=== PATIENT | female | born 1955 | race Caucasian/White ===

== ENCOUNTER 2024-04-22 06:38 | Outpatient (CLI) | payer MEDICARE, BC, SELFPAY | END 2024-04-22 06:39 | disposition home or self-care (01) | LOC: NFLDREF 06:39 | PROVIDERS: PCP Family Medicine; Visit Provider Family Medicine | DX: N30.00 Acute cystitis without hematuria (principal); B96.20 Unspecified Escherichia coli [E. coli] as the cause of diseases classified elsewhere | CPT/HCPCS: 87086; 87186 ==

== ENCOUNTER 2024-05-06 07:55 | Outpatient (CLI) | payer MEDICARE, BC, SELFPAY | END 2024-05-06 07:56 | disposition home or self-care (01) | LOC: NFLDREF 05-10 22:55 | PROVIDERS: PCP Family Medicine; Referring Provider Family Medicine; Visit Provider Family Medicine | DX: E78.5 Hyperlipidemia, unspecified (principal); R30.0 Dysuria | CPT/HCPCS: 80053; 80061 ==

== ENCOUNTER 2024-11-23 11:19 | Outpatient (CLI) | payer MEDICARE, BC, SELFPAY ==
--- NOTE | 2024-11-23 11:30 | CRLHL7_ITS ---
For Patients: As a result of the Century Cures Act, medical imaging exams and procedure reports are released immediately into your electronic medical record. You may view this report before your referring provider. If you have questions, please contact your health care provider. BILATERAL SCREENING MAMMOGRAM WITH COMPUTER-AIDED DETECTION AND TOMOSYNTHESIS TECHNIQUE: CC and MLO views were obtained. These mammographic images have been obtained using full-field digital technique. These mammographic images were interpreted with the benefit of computer-aided detection. Breast Tomosynthesis was used in this interpretation. COMPARISON FILM: 02/02/19, 07/30/16. FINDINGS: The breasts are heterogeneously dense, which may obscure small masses. IMPRESSION: There is no radiographic evidence for malignancy. ASSESSMENT: BI-RADS Category 1: Negative RECOMMENDATION: Routine screening mammogram in 1 year. A lay language report of this examination will be provided to the patient. Syed Carter M.D. Diagnostic Radiologist [email or web address] SP/Dictated by: Syed Carter MD @ 11/24/2024 9:17:00 AM (Electronically Signed)
== END 2024-11-23 11:20 | disposition home or self-care (01) ==
LOC: MAMMO 11:20
PROVIDERS: PCP Family Medicine; Visit Provider Family Medicine
DX: Z12.31 Encounter for screening mammogram for malignant neoplasm of breast (principal); R92.333 Mammographic heterogeneous density, bilateral breasts
CPT/HCPCS: 77063; 77067

== ENCOUNTER 2024-12-06 16:00 | Outpatient (RCR) | payer MEDICARE, BC, SELFPAY ==
--- NOTE | 2024-08-30 10:53 | PT.OPEX ---
PT [place] Outpatient Eval PT [facility] Outpatient Eval Start: 08/16/24 14:52 Freq: Status: Active Protocol: Document 08/30/24 07:13 MLS (Rec: 08/30/24 10:51 MLS [email or web address]) E-signed By Gris Guzman DPT Physical Therapy Outpatient Evaluation Insurance Information Recert Due Date 11/27/24 Insurance Name Medicare B,Blue Cross/Blue Shield Medical Diagnosis M39.3 stress incontinence Treating Diagnosis Stress incontinence LBP - right sided Referring MD Roger Long MD Subjective Preferred Name Tiara Anders Patient is a 69 year old female who presents to physical therapy with signs and symptoms consistent with stress incontinence and low back pain. She states that when she was 40, she had a herniated disc. She states that she lost strength in her right leg and sciatica. She states that she did go to the [facility] in [place] for PT. She reports that she did her exercise until about 2016. She states that she did her stretches until she started getting vertigo. She states that she has not been doing her low back stretches but does other exercises. She states that she is very active . She states that she has a big house and yard and two dogs, so her exercise is taking care of everything. She reports that she has the strength to lift a case of food. No complaints of numbness or tingling into her legs now. She states that her back discomfort now is pretty much constant. She states that the intensity comes and goes, and it is more like a dull sensation in her low back . She states that she takes Advil for pain. She states that she sleeps with a body pillow. She states that she stress incontinence ahs been going on for about ten years. She states that she had a hysterectomy at 50. She reports that she was on the patch but it was not working well. She states that she has been on estrogen and they dropped it to 10 mg due to insurance reasons. She states that after they dropped the estrogen, her incontinence seems to get worse. She states that she thinks something may be irritating her bladder, but is unsure what. She states that she really does not like drinking water, and she gets lots of burps. She did have a severe bladder infection in March, [place]. She states that by the time she got in, she had a lot of urgency which has improved now . Urinary- Leakage (day/night):every other day/every third day - may just have some dampness, she can wear one brand bc of skin sensitivity, she has some panties that absorb but they are bulky Freq of leakage: once on one of those days, with an event, with a sneeze or cough, inconsistent with time of day Protection worn: pad during day, not at night Severity of leakage (amount): varies Activity that causes leakage ( laughing, coughing, sneezing, carpio in door, running water etc): coughing, sneezing, carpio in door a few times Delay of urination: no Urinary urgency (any incontinence): one time Strain to start/stop urine stream: no, does try to double void, will sit for a minute to get more out Hydration/fluid intake: morning, as much decaf as she can drink (5 cups of coffee), 1 v8 juice at lunch, after nap more coffee, will sometimes have a little water in the afternoon, sometimes wine with dinner, water with meds in evening Daytime urination (how often): 8 Nocturia: 3 (after dinner) Dysuria (pain w urination): no Post-void dribble: no Pressure/heaviness: no Triggers: not that she is aware of Observation (color, odor, burning, blood, weak stream): typically dark yellow Bowel- Frequency:1 or less [place] chart: 1-4, worse with holidays, took psyllium and overcorrected Constipation/Diarrhea: constipation Observation (mucus. blood): no Do you feel bowels fully evacuate with BM: no, worse with constipation Fecal leakage: no Fecal urgency: sometimes Protection used: no Straining with BM: yes Pain with BM: occasionally, not frequently Do you use pressure with hands to assist with BM: sometimes Flatus incontinence: rarely Abdominal/rectal pain or symptoms: occasionally Do foods increase or decrease symptoms: whole grains help Do you take bowel supplements/ laxatives: not regularly Fiber intake: not enough Diet/food intolerances: vegetarian at heart, but flexitarian now, artificial sugars intolerance Sexual- Are you sexually active: has ED, so not currently, did buy vibrator from [employer] but too loud, last time was this summer for sex What does sex activity look like for you (penetration, dryness etc): used a lubricant Pain with sex (location, penetration, orgasm, after): no, sex has been better since hysterectomy Leakage with intercourse: no Marinoff scale (rate pain):0 Menstrual History- Date of last period: 05/09/2005 , then had full hysterectomy Menopause age: 50 - Number of pregnancies: 3 Number of deliveries:3 Vaginal or : vaginal Length of labor/pushing: episiotomy with first, second very fast and tore, third fast with tear Forceps or Vacuum: no Tearing or episiotomy: yes Other complications: abrupted placenta with third Other- Pain with gynecological exam: no Any chronic yeast infections: no Chronic UTIs: no STIs: Prefer not to answer Vaginal dryness: yes, not horrible Meds taken for bladder or diuretics: Chlorthalidone PMHx-hypertension and PVC's ( 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 Precautions Weight Bearing Status Full Weight Bearing Therapy Limitations/Systems Review Not Limited Objective Other/Pertinent Objective SLS: no increase in pain Lumbar Posture: decreased lordosis Pelvic Posture: normal Sacral Posture: normal Hip PROM: WNL LUMBAR ROM: WNL, min dec, mod dec, sev dec Flexion: WNL Extension: min dec Right Sidebend: WNL Left Sidebend: min dec Right Rotation: WNL Left Rotation: min dec LE MMT Hip flexion: R 4+/5 L 5/5 Hip Extension: R 4+/5 L 4+/5 Hip abduction: R 4+/5 L 4+/5 knee extension: R 5/5 L 5/5 Knee Flexion: R 5/5 L 5/5 Other tests: Breathing: chest/neck breathing Myofascial palpation: Tenderness to right QL SPECIAL TESTS Straight leg raise: positive for discomfort on right Crossed straight leg raise: negative Slump test: negative Quadrant test: negative HIP (R/L): KENDRICK: positive on right FADIR: negative Log roll Test: negative Posterior impingement Test: negative Hong compression Test(IT-band ): negative TX: Access Code: [email or web address] URL: [email or web address] Date: 08/30/2024 Prepared by: Gris Guzman Exercises - Supine Diaphragmatic Breathing - 1 x daily - 7 x weekly - 3 sets - 10 reps - Supine Lower Trunk Rotation - 1 x daily - 7 x weekly - 3 sets - 10 reps - Supine Figure 4 Piriformis Stretch - 1 x daily - 7 x weekly - 3 sets - 10 reps - Child's Pose Stretch - 1 x daily - 7 x weekly - 3 sets - 10 reps - Cat Cow - 1 x daily - 7 x weekly - 3 sets - 10 reps Functional Test Performed & Score Pelvic Floor Questionnaire Bladder Function Bowel Function Prolapse and Sexual Function N /A Assessment Assessment/Impression Pt is a 69 year old female who presents with concerns of stress incontinence and low back pain. Internal exam at next appointment. Patient also has notable objective findings including limited ROM , tenderness to palpation, and decreased strength which are also likely contributing to the problem. Patient is a good candidate for skilled therapy to target deficits described above. Skilled PT intervention is necessary for use of therapeutic exercise manual therapy, neuromuscular re- education, gait training, and therapeutic activity. Functional impairments include difficulty with: standing, walking, exercising and ADLs. See appropriate sections of PT eval for complete list of goals and POC. D/C plan and criteria is for pt to achieve the goals as listed below or until max rehab potential is met. Pt was agreeable with plan of care and goals established. Primary Functional Limitations standing walking exercising ADLs Plan of Care Rehabilitation Potential Good Physical Therapy Goals STG (within 4-6 weeks) 1) Pt will demonstrate proper coordination of motor recruitment patterns for PF then TA activation during isometric activation while maintaining diaphragmatic breathing pattern 2)Pt will recall at least 4 strategies to improve pressure management in order to reduce instances of incontinence outside PT sessions 3) Pt will report reduced urinary leakage episodes no more than 1-2 times per day for improved health of vaginal tissues 4) Pt will be able to perform ADLs with reports of <2/10 low back pain. LTG (within 10-12 weeks) 1) Pt will demonstrate proper coordination of motor recruitment patterns for PF then TA activation during dynamic UE/LE movements in all postures while maintaining diaphragmatic breathing pattern 2)Pt will demonstrate ability to complete at least 10 quick contractions of PFM with full relaxation between reps in order to reduce incontinence with increases in IAP 3) Pt will report reduced urinary leakage episodes no more than 1-2 times per week for improved health of vaginal tissues 4) Pt will report absent urinary leakage with cough, sneeze, jump. Coordination/Communication With Referral Source Treatment Plan/Direct Interventions Joint Mobilization,Manual Therapy,Neuromuscular Re-ed, Therapeutic Activities, Therapeutic Exercises Patient Will Be Discharged From Therapy Independently Progressing Evaluation Billing Untimed Code Treatment Minutes 60 Complexity Low Certification Information Provider Signature Required Yes Provider Signature Shows Agreement With POC & Medical Necessity Physician NPI Number Write NPI# Here Physician Comment/Change : Physician Signature & Date Requested Please Sign/Date Here
--- NOTE | 2024-12-06 16:38 | PT.OPDNX ---
PT [place] Outpatient Daily Note PT [facility] Outpatient Daily Note Start: 08/16/24 14:52 Freq: Status: Active Protocol: Document 12/06/24 10:21 MLS (Rec: 12/06/24 16:37 MLS [email or web address]) E-signed By Gris Guzman DPT PT OP Daily Progress Note Visit Information Note Type Daily Note Visit Number 4 Insurance Information Recert Due Date 11/27/24 Insurance Name Medicare B,Blue Cross/Blue Shield Medical Diagnosis M39.3 stress incontinence Treating Diagnosis Stress incontinence LBP - right sided Referring MD Roger Long MD Subjective Preferred Name Tiara Subjective Patient is a 69 year old female who presents to physical therapy with signs and symptoms consistent with stress incontinence and low back pain. She states that she is feeling like she is turning 70. She states that she wants to hold her body at a distance. She states that she was having a lot of back pain and that it is better now . She has still been struggling with vertigo. She states that it may be related to the blood pressure medication. She states that she can't figure out the cause of it. She is trying to get her MRI from [facility] . She states that she is workingo n her pelvic floor contractions and sidelying is better. She states that she has been having some days without leakage and some with. She has an appointment with her breast surgeon on the and is going to discuss vaginal estrogen. From initial: She states that when she was 40, she had a herniated disc. She states that she lost strength in her right leg and sciatica. She states that she did go to the [facility] in [place] for PT. She reports that she did her exercise until about 2016. She states that she did her stretches until she started getting vertigo. She states that she has not been doing her low back stretches but does other exercises. She states that she is very active . She states that she has a big house and yard and two dogs, so her exercise is taking care of everything. She reports that she has the strength to lift a case of food. No complaints of numbness or tingling into her legs now. She states that her back discomfort now is pretty much constant. She states that the intensity comes and goes, and it is more like a dull sensation in her low back . She states that she takes Advil for pain. She states that she sleeps with a body pillow. She states that she stress incontinence ahs been going on for about ten years. She states that she had a hysterectomy at 50. She reports that she was on the patch but it was not working well. She states that she has been on estrogen and they dropped it to 10 mg due to insurance reasons. She states that after they dropped the estrogen, her incontinence seems to get worse. She states that she thinks something may be irritating her bladder, but is unsure what. She states that she really does not like drinking water, and she gets lots of burps. She did have a severe bladder infection in March, [place]. She states that by the time she got in, she had a lot of urgency which has improved now . Urinary- Leakage (day/night):every other day/every third day - may just have some dampness, she can wear one brand bc of skin sensitivity, she has some panties that absorb but they are bulky Freq of leakage: once on one of those days, with an event, with a sneeze or cough, inconsistent with time of day Protection worn: pad during day, not at night Severity of leakage (amount): varies Activity that causes leakage ( laughing, coughing, sneezing, carpio in door, running water etc): coughing, sneezing, carpio in door a few times Delay of urination: no Urinary urgency (any incontinence): one time Strain to start/stop urine stream: no, does try to double void, will sit for a minute to get more out Hydration/fluid intake: morning, as much decaf as she can drink (5 cups of coffee), 1 v8 juice at lunch, after nap more coffee, will sometimes have a little water in the afternoon, sometimes wine with dinner, water with meds in evening Daytime urination (how often): 8 Nocturia: 3 (after dinner) Dysuria (pain w urination): no Post-void dribble: no Pressure/heaviness: no Triggers: not that she is aware of Observation (color, odor, burning, blood, weak stream): typically dark yellow Bowel- Frequency:1 or less [place] chart: 1-4, worse with holidays, took psyllium and overcorrected Constipation/Diarrhea: constipation Observation (mucus. blood): no Do you feel bowels fully evacuate with BM: no, worse with constipation Fecal leakage: no Fecal urgency: sometimes Protection used: no Straining with BM: yes Pain with BM: occasionally, not frequently Do you use pressure with hands to assist with BM: sometimes Flatus incontinence: rarely Abdominal/rectal pain or symptoms: occasionally Do foods increase or decrease symptoms: whole grains help Do you take bowel supplements/ laxatives: not regularly Fiber intake: not enough Diet/food intolerances: vegetarian at heart, but flexitarian now, artificial sugars intolerance Sexual- Are you sexually active: has ED, so not currently, did buy vibrator from [employer] but too loud, last time was this summer for sex What does sex activity look like for you (penetration, dryness etc): used a lubricant Pain with sex (location, penetration, orgasm, after): no, sex has been better since hysterectomy Leakage with intercourse: no Marinoff scale (rate pain):0 Menstrual History- Date of last period: 05/09/2005 , then had full hysterectomy Menopause age: 50 - Number of pregnancies: 3 Number of deliveries:3 Vaginal or : vaginal Length of labor/pushing: episiotomy with first, second very fast and tore, third fast with tear Forceps or Vacuum: no Tearing or episiotomy: yes Other complications: abrupted placenta with third Other- Pain with gynecological exam: no Any chronic yeast infections: no Chronic UTIs: no STIs: Prefer not to answer Vaginal dryness: yes, not horrible Meds taken for bladder or diuretics: Chlorthalidone PMHx-hypertension and PVC's ( 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 Abuse- prefer not to answer Current exercise-walk the dogs , working in home Orthopedic issues-herniated L4 -L5 in 1994 Pain Comments Today: 2/10 on a 0-10 pain scale with 10 = extreme pain Precautions Weight Bearing Status Full Weight Bearing Objective Other/Pertinent Objective SLS: no increase in pain Lumbar Posture: decreased lordosis Pelvic Posture: normal Sacral Posture: normal Hip PROM: WNL LUMBAR ROM: WNL, min dec, mod dec, sev dec Flexion: WNL Extension: min dec Right Sidebend: WNL Left Sidebend: min dec Right Rotation: WNL Left Rotation: min dec LE MMT Hip flexion: R 4+/5 L 5/5 Hip Extension: R 4+/5 L 4+/5 Hip abduction: R 4+/5 L 4+/5 knee extension: R 5/5 L 5/5 Knee Flexion: R 5/5 L 5/5 Other tests: Breathing: chest/neck breathing Myofascial palpation: Tenderness to right QL SPECIAL TESTS Straight leg raise: positive for discomfort on right Crossed straight leg raise: negative Slump test: negative Quadrant test: negative HIP (R/L): KENDRICK: positive on right FADIR: negative Log roll Test: negative Posterior impingement Test: negative Hong compression Test(IT-band ): negative Functional Test Performed & Score Pelvic Floor Questionnaire Bladder Function Bowel Function Prolapse and Sexual Function N /A Patient Instructed in Risks/Benefits Yes Therapeutic Exercise Therapeutic Exercise: To Restore Reviewed and discussed home Functional Status program with modifications secondary to vertigo, attempt on floor or bed with pillows Add breath w movement, kegel w movement, pelvic tilt progression ball adduction squeezes, bridge w ball squeeze, lumbar stretching, pelvic tilts Access Code: [email or web address] URL: [email or web address] Date: 10/25/2024 Prepared by: Gris Guzman Exercises - Supine Lower Trunk Rotation - 1 x daily - 7 x weekly - 3 sets - 10 reps - Supine Figure 4 Piriformis Stretch - 1 x daily - 7 x weekly - 3 sets - 10 reps - Child's Pose Stretch - 1 x daily - 7 x weekly - 3 sets - 10 reps - Cat Cow - 1 x daily - 7 x weekly - 3 sets - 10 reps - Sidelying 360 Breathing - 1 x daily - 7 x weekly - 3 sets - 10 reps - Sidelying Thoracic Rotation with Open Book - 1 x daily - 7 x weekly - 3 sets - 10 reps - Supine Pelvic Floor Contraction - 1 x daily - 7 x weekly - 3 sets - 10 reps - 5 hold - less than 30 per day, 5 sec hold, contract before sneeze Therapeutic Activity Therapeutic Activity Minutes (minutes) 30 Therapeutic Activities Comments Reviewed and discussed diet, constipation hacks such as psyllium husks and frankie seeds, exchanging nightly drink for ice cream to decrease urgency in evenings, CBD/THC in place of advil, increasing kegel holds to 5-8 seconds still less than 30 per day, Pelvic External Exam: Sensation: intact to touch Gaping: none -Anterior wall: none -Posterior wall: none Tension/scar: none Skin integrity: dry, dark Perineum: concave Cough: reflexive contraction Lifting: nil Bulge: nil Prolapse: non Hemorrhoids: none Pelvic Internal Exam: Prolapse: no Tenderness/pain to palpation/ tone: Introidus: no tenderness Layer 1: Ischiocavernosus / bulbocavernosus / superficial transverse perineal - mild tenderness right side Layer 2: External urethral sphincter / deep transverse perineal / compressor urethra / sphincter urethrovaginalis - no tenderness Layer 3: Puborectalis / Pubococcygeus / illiococcygeus / coccygeus - mod tenderness left side Strength: (R/C/L) Power (MMT 0-no, 1-flicker, 2- weak, 3 -mod, 4-good/lift 5- strong): 4 Endurance: <5 sec Reps: 5 Fast Twitch: 5 Relaxation of PFM after quick contractions: normal/delayed Brink Score: squeeze pressure 3, muscle contraction duration >3, lift 2 (squeeze 0-none, 1- weak, 2- mod, 3-strong), duration <1, between 1-3, >3, lift- 1=none, 2- fingertips move ant, 3- length of finger moves ant, 4- whole finger moves ant Manual Therapy Techniques Manual Therapy Techniques DTM and myofascial release to bilateral piriformis, QL and multifidi Treatment Minutes Timed Code Treatment Minutes 30 Total Treatment Time 30 Billing Units Therapeutic Activity Units 2 Assessment/Impression Assessment/Impression Pt is a 69 year old female who presents with concerns of stress incontinence and low back pain. No internal work done today secondary to possible herpes outbreak. Increased kegels to 5-8 second holds, less than 30 per day. Discussed strategies to help with constipation including psyllium husk and frankie seeds. Discussed working in more water, although gag reflex has gotten worse due to recent traumatic dentist event. Difficulty with performing stretches on the floor due to vertigo. She notes that she has been under a lot of stress recently. Skilled PT intervention is necessary for use of therapeutic exercise manual therapy, neuromuscular re-education, gait training, and therapeutic activity. D/C plan and criteria is for pt to achieve the goals as listed below or until max rehab potential is met. Primary Functional Limitations standing walking exercising ADLs Plan of Care Physical Therapy Goals STG (within 4-6 weeks) 1) Pt will demonstrate proper coordination of motor recruitment patterns for PF then TA activation during isometric activation while maintaining diaphragmatic breathing pattern 2)Pt will recall at least 4 strategies to improve pressure management in order to reduce instances of incontinence outside PT sessions 3) Pt will report reduced urinary leakage episodes no more than 1-2 times per day for improved health of vaginal tissues 4) Pt will be able to perform ADLs with reports of <2/10 low back pain. LTG (within 10-12 weeks) 1) Pt will demonstrate proper coordination of motor recruitment patterns for PF then TA activation during dynamic UE/LE movements in all postures while maintaining diaphragmatic breathing pattern 2)Pt will demonstrate ability to complete at least 10 quick contractions of PFM with full relaxation between reps in order to reduce incontinence with increases in IAP 3) Pt will report reduced urinary leakage episodes no more than 1-2 times per week for improved health of vaginal tissues 4) Pt will report absent urinary leakage with cough, sneeze, jump. Daily Plan of Care Continue per POC Recertification Information Initial Certification Date 08/30/24 Recertification Start Date 12/06/24 Recertification Due Date 11/27/24 Reasons to Continue Skilled Therapy Penny has only had three appointments due to multiple cancellations for different reasons. She is progressing nicely with physical therapy for her stress incontinence. Will continue to focus on pelvic floor strengthening and core program. Rehabilitation Potential Good Continued Plan of Care and Interventions Ther exercise Ther activities manual therapy Provider Signature Shows Agreement With POC & Medical Necessity Physician Comment/Change Comment or Changes Physician NPI Number #
== END 2025-02-01 12:39 | disposition home or self-care (01) ==
PROVIDERS: PCP Family Medicine; Visit Provider Family Medicine
DX: N39.3 Stress incontinence (female) (male) (principal); M54.50 Low back pain, unspecified; G89.29 Other chronic pain; Z51.89 Encounter for other specified aftercare
CPT/HCPCS: 97110; 97140; 97161; 97530

== ENCOUNTER 2025-06-02 09:20 | Outpatient (CLI) | payer MEDICARE, BC, SELFPAY | END 2025-06-02 09:21 | disposition home or self-care (01) | LOC: NFLDREF 23:23 | PROVIDERS: PCP Family Medicine; Referring Provider Family Medicine; Visit Provider Family Medicine | DX: E78.5 Hyperlipidemia, unspecified (principal) | CPT/HCPCS: 80053; 80061 ==

== ENCOUNTER 2025-07-27 20:07 | Emergency (ER) | payer MEDICARE, BC, SELFPAY ==
--- OUTSIDE RECORDS SUMMARY | 2025-07-27 20:09 | XMS_ITS | Clinical Summary ---
Author Organization [employer] [facility] Address [address] [place] [id number] Care Team Providers Care Safety Specialist Name Role Phone Roger Long MD Primary Care Provider [phone] Allergies Active Allergy Reactions Criticality Noted Date Comments Amlodipine Edema 03/29/2021 Ankle swelling Cephalexin Other - Describe In Comment Field 10/09/2012 Vaginal itching Venlafaxine Other - Describe In Comment Field 06/04/2022 Took for anxiety - caused her to feel suicidal(see mental health intake 03/2013) Lisinopril Cough 05/30/2020 Metoprolol Arthralgia 01/03/2021 Stopped fall 2019 due to hip pain Penicillins Rash 10/09/2012 Medications aspirin (ECOTRIN) 81 mg enteric coated tablet Take 1 tablet by mouth once daily with a meal. 0 0 Active ibuprofen (ADVIL; MOTRIN) 200 mg tablet Take 1 tablet by mouth 4 times daily if needed. 0 0 Active cholecalciferol (Vitamin D-3) 2,000 unit capsule Take 1 Capsule (2,000 units) by mouth once daily. 0 1 Active estradioL (ESTRACE) 0.5 mg tabletIndicatio ns:Hot flashes due to menopause Take 1 Tablet (0.5 mg) by mouth once daily. 90 Tablet 3 2 Active atenoloL (TENORMIN) 50 mg tabletIndicatio ns:HTN (hypertension) Take 1 Tablet (50 mg) by mouth two times daily. 180 Tablet 3 2 Active rosuvastatin (CRESTOR) 5 mg tabletIndicatio ns:Elevated coronary artery calcium score Take 1 Tablet (5 mg) by mouth at bedtime. 90 Tablet 3 3 Active triamcinolone (ARISTOCORT; KENALOG) 0.1 % creamIndication s:Dermatitis Apply topically to affected area(s) three times daily. 80 g 3 Active ALPRAZolam (XANAX) 0.25 mg tablet Take 0.5 Tablets (0.125 mg) by mouth at bedtime if needed for Anxiety (Takes 0.5 tab prior to dental appointments). 3 Active ibuprofen-aceta minophen (AdviL Dual Action) 125-250 mg tab Take 2 Tablets by mouth at bedtime. 0 3 Active losartan (COZAAR) 100 mg tabletIndicatio ns:HTN (hypertension) Take 1 Tablet (100 mg) by mouth once daily. 90 Tablet 3 3 Active chlorthalidone (HYGROTON) 25 mg tabletIndicatio ns:HTN (hypertension) Take 0.5 Tablets (12.5 mg) by mouth once daily. 45 Tablet 1 3 Active chlorhexidine (PERIDEX) 0.12 % solution USE 10 ML BY MOUTH TWICE A DAY; AFTER BREAKFAST AND AT BEDTIME, SWISHING FOR 30 SECONDS. EXPECTORATE. NOTHING BY MOUTH FOR 30 MINUTES 5 Active clindamycin (CLEOCIN) 150 mg capsule STARTING THE MORNING OF PROCEDURE TAKE 2 CAPSULES BY MOUTH THREE TIMES DAILY UNTIL GONE 5 Active Active Problems Problem Noted Date Diagnosed Date UTI (urinary tract infection), uncomplicated Abnormal CT scan, heart 01/11/2022 Hot flashes due to menopause 03/19/2021 HTN (hypertension) 03/19/2021 FH: stroke 01/03/2021 Palpitations 01/03/2021 Overview (06/04/2022): Cardiology consult 03/19/19December 2020 CT cardiac coronary arteries: calcium score 0, LAD exhibits nonobstructive narrowing without plaque - cardiology advised low dose statin WEI (generalized anxiety disorder) 05/20/2013 Overview (01/03/2021): Zoloft caused weight gain 80# PTSD (post-traumatic stress disorder) 04/15/2013 Hypertension Overview (01/03/2021): Lisinopril caused cough Metoprolol ? arthralgia Depression Immunizations Immunization Administration Dates Next Due COVID-19 VACCINE SPIKEVAX (M ODERNA 50MCG/0.5ML) 12YO+ PFS 06/16/2023 COVID-19 vaccine (Moderna 100mcg/0.5mL) PF, MDV 01/25/2022 COVID-19 vaccine (Pfizer-Bio NTech 30mcg/0.3mL) PF, MDV 11/19/2020,10/29/2020 Influenza Virus, Unspecified 08/02/2013 Influenza, High-dose Quadriv alent Inactivated 07/14/2023,07/15/2022,08/02/2021,2019 Influenza, IIV3 (Age 6-35 mos) 06/22/2014,2011 Tdap 12/05/2016 Family History Medical History Relation Name Comments Valvular heart disease Father Cancer-breast Maternal Grandmother Hypertension Mother Stroke Mother Cancer-ovarian No Family History Relation Name Status Comments Father (Age 96) Maternal Grandmother Mother Social History Tobacco Use Types Packs/Day Years Used Date Smoking Tobacco: Never Smokeless Tobacco: Never Tobacco Cessation:Counseling Given: Yes Alcohol Use Standard Drinks/Week Comments Yes 0 (1 standard drink = 0.6 oz pur e alcohol) wine and beer everyday. PHQ-2 Answer Date Recorded PHQ-2 TOTAL SCORE 0 06/03/2022 Social Connections Answer Date Recorded Frequency of Communication with Friends and Fami ly 0 06/03/2022 Financial Resource Strain Answer Date R ecorded Difficulty of Paying Living Expenses 3 06/03/2022 Difficulty of Paying Living Expenses Not on file 06/03/2022 Food Insecurity Answer Date Recorded Worried About Running Out of Food in the Last Ye ar 1 06/03/2022 Transportation Needs Answer Date Record ed Lack of Transportation (Medical) 1 06/03/2022 Housing Stability Answer Date Recorded Unable to Pay for Housing in the Last Year 1 06/03/2022 Comments No Sex and Gender Information Value Date Recorded Sex Assigned at Not on file Legal Sex Female 6:10 AM LINOTYPE MACHINIST Gender Identity Not on file Sexual Orientation Not on file Obstetrics History Last Filed Vital Signs Vital Sign Reading Time Taken Comments Blood Pressure 113/73 09/28/2024 11:31 AM LINOTYPE MACHINIST Pulse 66 09/28/2024 11:31 AM LINOTYPE MACHINIST Temperature 36.9 C (98.4 F) 10/09/2012 3:31 PM LINOTYPE MACHINIST Respiratory Rate 14 06/09/2023 4:24 PM CDT Oxygen Saturation 98% 09/28/2024 11: 31 AM LINOTYPE MACHINIST Inhaled Oxygen Concentration - - Weight 71.1 kg (156 lb 12.8 oz) 025 11:31 AM LINOTYPE MACHINIST Height 167.4 cm (5' 5.9) 06/09/2023 4:24 PM CDT Body Mass Index 25.39 06/09/2023 4:24 PM CDT Plan of Treatment Health Maintenance Due Date Last Done Comments Hepatitis C screening for age 18-79 1973 Pneumococcal series for age 50+ (1 of 2 - PCV) 1974 RSV vaccine for adults or (1 - Risk 50-74 years 1-dose series) 2005 Zoster (shingles) series for age 50+ (1 of 2) 2005 DEXA/DXA scan for age 65+ 2020 Medicare Wellness for age 65+ 03/20/2022 03/19/2021 Depression screening for age 12+ 06/03/2023 06/03/2022, 03/22/2021, 03/19/2021, Additional history exists Mammogram for age 45-75 02/06/2024 02/06/20 23, 10/31/2021, 07/30/2016 BMI (ht and wt on same day) for age 18+ 06/09/2024 06/09/2023, 05/01/2023, 12/23/2022, Additional history exists COVID-19 vaccine series (2024- season) 2025 05/10/2024, 06/16/2023, 10/07/2022, Additional history exists Influenza Vaccine (#1) 2025 4, 08/02/2013, 08/10/2012 Fecal testing sDNA-FIT (Cologuard) for age 45-75 09/11/2025 09/11/2022 Tetanus booster 12/05/2026 12/05/2016 Lipids for age 45-75 06/02/2028 06/02/2023, 05/29/2022, 11/24/2018 (Completed outside of [facility]) Hepatitis B series for 19+ Aged Out N o longer eligible based on patient's age to complete this topic Procedures Procedure Name Priority Date/Time Associated Diagnosis Comments LIPID PANEL Add On 06/02/2023 7:57 AM CDT Lipid screening XR MAMMO OMAYRA BILAT SCREEN Routine 02/05/2023 11:33 AM CDT Encounter for screening mammogram for malignant neoplasm of breast SDNA-FIT EXTERNAL (COLOGUARD) Routine 09/11/2022 10:00 AM LINOTYPE MACHINIST Screening for colon cancer from Last 3 Months or Most Recently Relevant to Health Maintenance Results * (ABNORMAL) LIPID PANEL (06/02/2023 7:57 AM CDT) CHOLESTEROL,TOTAL 168 100 - 199 mg/dL 06/02/2023 6:38 PM CDT [facility] Comment: Cholesterol, Total Reference Ranges Desirable <200 mg/dL Borderline 200-239 mg/dL High >=240 mg/dL TRIGLYCERIDES 238(H) <150 mg/dL 06/02/2023 6:38 PM CDT [facility] HDL CHOLESTEROL 56 >40 mg/dL 6:38 PM CDT [facility] NON-HDL CHOLESTEROL 112 <145 mg/dl 06/02/2023 6:38 PM CDT [facility] CHOL/HDL RATIO 3.00 <4.50 06/02/2023 6:38 PM CDT [facility] LDL CHOLESTEROL 64 <=130 mg/dL 06/02/2023 6:38 PM CDT [facility] VLDL CHOLESTEROL 48(H) <=30 mg/dL 06/02/2023 6:38 PM CDT [facility] Blood BLOOD SPECIMEN / Unknown Venipuncture / Unknown 06/02/2023 7:57 AM CDT 06/02/2023 7:58 AM CDT Trisha Ivy NP CHEMISTRY Final Result [facility] [address] [place] [address], [place] * XR MAMMO OMAYRA BILAT SCREEN (02/05/2023 11:33 AM CDT) Anatomical Region Laterality Modality BREASTS, Breast Left, Breast Right Bilateral Mammography Impressions 02/06/2023 3:04 PM CDT There is no radiographic evidence for malignancy. Recommend annual mammograms. MAMMOGRAM ASSESSMENT: ACR 1 Negative PATIENTS: You will also receive a letter with your examination results in an easy to read format. If you have questions about your results, please contact your referring provider. Narrative 02/06/2023 3:04 PM CDT For Patients: As a result of the Century Cures Act, medical imaging exams and procedure reports are released immediately into your electronic medical record. You may view this report before your referring provider. If you have questions, please contact your health care provider. XR MAMMO OMAYRA BILAT SCREEN [[id number]] CLINICAL HISTORY: This is an asymptomatic 67 y.o. patient. INDICATION FOR EXAM: Mammogram Screening. TECHNIQUE: CC & MLO views were obtained. This study was evaluated with the assistance of Computer-Aided Detection. Breast Tomosynthesis was used in interpretation. COMPARISON FILM: Yes 10/31/21 [facility] FINDINGS: The breasts are heterogeneously dense, which may obscure small masses. There are no dominant masses, suspicious micro calcifications or areas of architectural distortion. Mayda Campbell MD MAMMO Final Resul t * sDNA-FIT External (Cologuard) [[id number]] (09/11/2022 10:00 AM LINOTYPE MACHINIST) NONINV COLON CA DNA+OCC BLD SCRN STL-IMP Negative Negative 09/15/2022 7:16 AM LINOTYPE MACHINIST [facility] (CLIA #:[id number]) Comment: NEGATIVE TEST RESULT. A negative Cologuard result indicates a low likelihood that a colorectal cancer (CRC) or advanced adenoma (adenomatous polyps with more advanced pre-malignant features) is present. The chance that a person with a negative Cologuard test has a colorectal cancer is less than 1 in 1500 (negative predictive value >99.9%) or has an advanced adenoma is less than 5.3% (negative predictive value 94.7%). These data are based on a prospective cross-sectional study of 10,000 individuals at average risk for colorectal cancer who were screened with both Cologuard and colonoscopy. (Barbra Olson. et al, N Engl J Med 2014;370(14):7352-7534) The normal value (reference range) for this assay is negative. COLOGUARD RE-SCREENING RECOMMENDATION: Periodic colorectal cancer screening is an important part of preventive healthcare for asymptomatic individuals at average risk for colorectal cancer. Following a negative Cologuard result, the [place] [employer] and U.S. Multi-Society Task Force screening guidelines recommend a Cologuard re-screening interval of 3 years. References: [place] [employer] Guideline for Colorectal Cancer Screening: https://www.cancer.org/cancer/mwpwi-atebgx-wawvqj/qavxcpqkx-lembimpeo-dmwywxp/ac s-rec ommendations.html.; Guillermo MAGAÑA, Ileana BASSETT, Jean Carlos GilK, Colorectal Cancer Screening: Recommendations for Physicians and Patients from the U.S. Multi-Society Task Force on Colorectal Cancer Screening , Am J Gastroenterology 2017; 112:1388-5744. TEST DESCRIPTION: Composite algorithmic analysis of stool DNA-biomarkers with hemoglobin immunoassay. Quantitative values of individual biomarkers are not reportable and are not associated with individual biomarker result reference ranges. Cologuard is intended for colorectal cancer screening of adults of either sex, 45 years or older, who are at average-risk for colorectal cancer (CRC). Cologuard has been approved for use by the U.S. FDA. The performance of Cologuard was established in a cross sectional study of average-risk adults aged 50-84. Cologuard performance in patients ages 45 to 49 years was estimated by sub-group analysis of near-age groups. Colonoscopies performed for a positive result may find as the most clinically significant lesion: colorectal cancer [4.0%], advanced adenoma (including sessile serrated polyps greater than or equal to 1cm diameter) [20%] or non- advanced adenoma [31%]; or no colorectal neoplasia [45%]. These estimates are derived from a prospective cross-sectional screening study of 10,000 individuals at average risk for colorectal cancer who were screened with both Cologuard and colonoscopy. (Barbra Cisneros et al, N Engl J Med 2014;370(14):6565-4858.) Cologuard may produce a false negative or false positive result (no colorectal cancer or precancerous polyp present at colonoscopy follow up). A negative Cologuard test result does not guarantee the absence of CRC or advanced adenoma (pre-cancer). The current Cologuard screening interval is every 3 years. ([place] [employer] and U.S. Multi-Society Task Force). Cologuard performance data in a 10,000 patient pivotal study using colonoscopy as the reference method can be accessed at the following location: www.[facility]/results. Additional description of the Cologuard test process, warnings and precautions can be found at www.[facility].com. Stool specimen (specimen) (Rectum) 09/11/2022 10:00 AM LINOTYPE MACHINIST 09/12/2022 12:39 PM LINOTYPE MACHINIST Eliane Marin MD URINE Final Result [facility] (CLIA #:[id number]) [place] [place] [address], from Last 3 Months or Most Recently Relevant to Health Maintenance Insurance [employer] [place] [address] MEDICARE PART B HB ONLY [employer] BLUE MR PB ONLY Care Teams Safety Specialist Relationship Specialty Start Date End Date Roger Long MD [address] [place] [id number] PCP - General Family Practice 07/21/24
[2025-07-27 20:11] VITALS: BP 156/85; PULSE 65; RESP 16; TEMP 36.6; O2SAT 98; BMI 25.8
--- NOTE | 2025-07-27 20:40 | ED.CHESTPAIN ---
HPI - Chest Pain General Time Seen by Provider: 20:41 Date Seen: 07/27/25 Chief Complaint: Chest Pain Stated Complaint: Chest pain Time Seen by Provider: 07/27/25 20:40 Source: patient and family Mode of arrival: ambulatory History of Present Illness HPI narrative: Penny is a 70-year-old for a past medical history of hypertension, hyperlipidemia, PVCs who presents to the emergency department for evaluation chest pain. Patient states that tonight around 6:00 p.m. she was reading a book in having a glass of wine when she developed sudden onset of severe chest pain. Patient describes the pain as severe sharp pain in her substernal/epigastric region with occasional radiation to her back and sides. Patient reports severity was intermittent and concern for esophageal spasms. Patient reports she was unable to pass gas/belch. Since this time has burped a little better and is feeling slightly better. Patient states that she tried drinking water, altoids, and Pepto-Bismol with no improvement of her symptoms. Patient reports feeling flushed but denies any fever, chills, cough or cold-like symptoms. Denies any other abdominal pain, nausea, vomiting, diarrhea. Patient reports history hysterectomy. Related Data Home Medications ?Medication ?Instructions ?Recorded ?Confirmed aspirin 81 mg tablet,delayed 81 mg PO QDAY 06/26/23 06/06/25 release (Adult Low Dose Aspirin) triamcinolone acetonide 0.1 % applic topical BID PRN 06/26/23 06/06/25 topical cream magnesium PO .QD 11/24/24 06/06/25 cholecalciferol (vitamin D3) 50 100 mcg PO QDAY 06/06/25 06/06/25 mcg (2,000 unit) capsule Previous Rx's ?Medication ?Instructions ?Recorded alprazolam 0.25 mg tablet (Xanax) 0.25 - 0.5 mg (1 - 2 x 0.25 mg) PO 06/06/25 BID PRN anxiety #12 tabs atenolol 50 mg tablet 50 mg PO BID #180 tabs 06/06/25 chlorthalidone 25 mg tablet 12.5 mg (1/2 x 25 mg) PO DAILY #45 06/06/25 tabs estradiol 0.5 mg tablet 0.5 mg PO DAILY #90 tabs 06/06/25 losartan 100 mg tablet 100 mg PO DAILY #90 tabs 06/06/25 rosuvastatin 5 mg tablet 5 mg PO DAILY #90 tabs 06/06/25 scopolamine base 1 mg over 3 days 1 patch transdermal Q3D PRN motion 06/06/25 transdermal patch sickness #4 ea Allergies Allergy/AdvReac Type Severity Reaction Status Date / Time amlodipine Allergy Unknown Edema Verified 06/06/25 13:45 Penicillins Allergy Unknown Hives Verified 06/06/25 13:45 venlafaxine Allergy Unknown Unknown Verified 06/06/25 13:45 cephalexin (From Keflex) AdvReac Unknown Yeast Verified 06/06/25 13:45 Infection lisinopril AdvReac Unknown Cough Verified 06/06/25 13:45 metoprolol AdvReac Joint Pain Verified 06/06/25 13:45 Review of Systems Narrative Past medical history, past surgical history, medications, allergies, family history, and social history were reviewed with the patient. No additional pertinent items. A medically appropriate review of systems was performed with pertinent positives and negatives noted in HPI, all other systems negative. PFSH PFSH Medical History Anxiety ?F41.9 - Anxiety disorder, unspecified (ICD-10) PTSD (post-traumatic stress disorder) ?F43.10 - Post-traumatic stress disorder, unspecified (ICD-10) Depression ?F32.A - Depression, unspecified (ICD-10) Surgical History H/O breast biopsy ?Z98.890 - Other specified postprocedural states (ICD-10) History of excision of lesion ?Z98.890 - Other specified postprocedural states (ICD-10) ?Z87.2 - Personal history of diseases of the skin and subcutaneous tissue (ICD-10) History of total abdominal hysterectomy and bilateral salpingo-oophorectomy ?Z90.710 - Acquired absence of both cervix and uterus (ICD-10) ?Z90.722 - Acquired absence of ovaries, bilateral (ICD-10) ?Z90.79 - Acquired absence of other genital organ(s) (ICD-10) Family History Maternal Grandmother Breast cancer Mother High blood pressure Stroke Father Valvular heart disease Social History (Updated 06/06/25 @ 14:59 by Bri Adan~PRIMARY CARE NURSE PRACTITIONER, PRIMARY CARE NURSE PRACTITIONER) What is your current living situation?: I presently have a place to live Problems where you live: declined to answer In the past 12 months, utilities in danger of being shut off: no In past 12 months, lack of transportation kept you from medical appts, meetings, work, or getting things needed for daily living: no In the past 12 mos, have been you worried that your food would run out before you had money to buy more?: never true In the past 12 mos, the food you bought just didn't last and you didn't have money to buy more?: never true Smoking Status: Never smoker How often do you have a drink containing alcohol: monthly or less AUDIT-C Alcohol total score: 1 Non-prescribed substance use: denies use How often does anyone, including family, friends and others, physically hurt you: never How often does anyone, including family, friends and others, insult or talk down to you: never How often does anyone, including family, friends and others, threaten you with harm: never How often does anyone, including family, friends and others, scream or curse at you: never Exam Narrative Exam Narrative: General: Afebrile, in distress HEENT: Normocephalic, atraumatic, conjunctiva normal. MMM Neck: non-tender, supple Cardio: regular rate. regular rhythm Resp: Normal work of breathing, no respiratory distress, lungs clear bilaterally, no wheezing, rhonchi, rales Chest/Back: no visual signs of trauma, no midline tenderness, no CVA tenderness Abdomen: soft, non distension, no tenderness, no peritoneal signs Neuro: alert and fully oriented. CN II-XII grossly intact. Grossly normal strength and sensation in all extremities. MSK: no deformities. Normal range of motion. No lower extremity edema or calf tenderness Integumentary/Skin: no rash visualized, normal color Psych: normal affect, normal behavior Const Vital Signs, click to edit/add: Vital Signs - 24 hr 07/27/25 20:11 Temperature 97.8 F Pulse Rate [Pulse Oximeter] 65 Respiratory Rate 16 Blood Pressure [Right Upper Arm] 156/85 H Pulse Oximetry 98 Oxygen Delivery Method Room Air Course Vital Signs Vital signs: Initial Vital Signs Temperature 97.8 F 07/27/25 20:11 Temperature Source Temporal Artery Scan 07/27/25 20:11 Pulse Rate 65 07/27/25 20:11 Respiratory Rate 16 07/27/25 20:11 Blood Pressure 156/85 H 07/27/25 20:11 Blood Pressure Mean 108 H 07/27/25 20:11 Blood Pressure Position Sitting 07/27/25 20:11 Pulse Oximetry 98 07/27/25 20:11 Oxygen Delivery Method Room Air 07/27/25 20:11 Vital Signs Temperature 97.8 F 07/27/25 20:11 Pulse Rate 65 07/27/25 20:11 Respiratory Rate 16 07/27/25 20:11 Blood Pressure 156/85 H 07/27/25 20:11 Pulse Oximetry 98 07/27/25 20:11 Oxygen Delivery Method Room Air 07/27/25 20:11 Temperature 97.8 F 07/27/25 20:11 Pulse Rate 65 07/27/25 20:11 Respiratory Rate 16 07/27/25 20:11 Blood Pressure 156/85 H 07/27/25 20:11 Pulse Oximetry 98 07/27/25 20:11 Oxygen Delivery Method Room Air 07/27/25 20:11 Medications Administered Medications: Discontinued Medications Generic Name Dose Route Start Last Admin Trade Name Freq PRN Reason Stop Dose Admin Lidocaine/Aluminum/Magnesium/Simeth 30 ml 07/27/25 21:03 07/27/25 21:35 Gi Cocktail (Visc Lido/Antacid) 30 Ml PO 07/27/25 21:04 30 ml ONCE ONE Administration Pantoprazole Sodium 40 mg 07/27/25 21:03 07/27/25 21:35 Pantoprazole Sodium 40 Mg Inj IVP 07/27/25 21:04 40 mg ONCE ONE Administration MDM - Chest Pain MDM Narrative Medical decision making narrative: Penny is a 70-year-old for a past medical history of hypertension, hyperlipidemia, PVCs who presents to the emergency department for evaluation chest pain. Upon arrival patient is nontoxic appearing, afebrile, in distress. Patient is slightly hypertensive upon arrival with blood pressure 156/85, heart rate 65, oxygen 98% on room air. Differential diagnosis includes but is not limited to ACS versus atypical chest pain versus esophageal spasms versus acid reflux versus pancreatitis versus cholecystitis versus biliary colic among others. Upon arrival EKG, comprehensive labs, chest x-ray performed. Patient was treated with IV Protonix, GI cocktail. I reviewed EKG which demonstrates normal sinus rhythm with a ventricular rate of 66 beats per minute, normal axis, QTC 470, no acute ischemic change. I personally reviewed interpreted chest x-ray which demonstrates no cardiomegaly, no focal infiltrate, pleural effusion, pneumothorax. Probable left upper lobe calcified granuloma. Comprehensive labs unremarkable with no leukocytosis white blood cell count 7.1, hemoglobin 13.5, sodium 132, potassium 3.5, chloride 93, no other acute metabolic electrolyte abnormality, creatinine 0.8, no transaminitis, normal bilirubin, normal lipase. Initial high sensitive troponin normal 2.9. Repeat high sensitive troponin 2.9. On re-evaluation patient resting comfortably, patient does report improvement of symptoms after GI cocktail. Overall ED workup reassuring, discussed results with patient, clinical presentation sounds consistent with esophageal spasms. Patient does report history of difficulty swallowing, do recommend close outpatient follow-up with her primary care provider for ongoing evaluation, possible further testing with EGD. Low suspicious for ACS given EKG with no acute ischemic change, high sensitive troponin negative x2. Laboratory testing and chest x-ray with no evidence of acute infection, pleural effusion, pneumothorax. Normal lipase, normal liver function tests so less likely pancreatic/gallbladder/liver etiology. Patient feels comfortable discharge home with close outpatient follow-up. Strict return precautions discussed. Differential Diagnosis Differential diagnosis: Likely pneumothorax, stable angina, unstable angina pectoris, atypical chest pain, st elevation myocardial infarction, costochondritis and chest pain Medical Records Data Attestation: I reviewed the patient's medical records. Lab Data Attestation: I reviewed the patient's lab results. Labs: Lab Results 07/27/25 07/27/25 07/27/25 Range/Units 20:41 20:55 22:42 WBC 7.17 (4.50-11.00) K/uL RBC 4.72 (4.00-5.20) m/uL Hgb 13.5 (12.0-16.0) gm/dL Hct 41.1 (33.0-51.0) % MCV 87 (80-100) fL MCH 29 (26-34) pg MCHC 33 (32-36) gm/dL RDW Coeff of Jackelin 12.7 (11.5-15.5) % Plt Count 263 (140-440) K/uL Neut % (Auto) 71.8 (42.0-72.0) % Lymph % (Auto) 20.6 (20-44) % [place] % (Auto) 5.9 (0.0-11.0) % Eos % (Auto) 1.0 (0.0-7.0) % Baso % (Auto) 0.6 (0.0-3.0) % Neut # (Auto) 5.15 (1.7-7.0) K/uL Lymph # (Auto) 1.48 (0.90-2.90) K/uL [place] # (Auto) 0.40 (0.00-0.90) K/UL Eos # (Auto) 0.07 (0.00-0.50) K/uL Baso # (Auto) 0.04 (0.00-0.30) K/uL Abs Immat Gran (auto) 0.01 (0.00-0.30) K/uL Imm/Tot Granulo (auto) 0.1 % Sodium 132 L (135-149) mmol/L Potassium 3.5 L (3.6-5.1) mmol/L Chloride 93 L (96-114) mmol/L Carbon Dioxide 26 (20-32) mmol/L Anion Gap 13 (7-15) mEq/L BUN 17 (7-30) mg/dL Creatinine 0.8 (0.5-1.5) mg/dL Estimated Creat Clear 49.00 Estimated GFR 79 ml/min Glucose 112 (60-115) mg/dL Calcium 9.4 (8.4-10.6) mg/dL Total Bilirubin 0.3 (0.1-1.5) mg/dL AST 26 (12-35) U/L ALT 18 (4-35) U/L Alkaline Phosphatase 66 (40-150) U/L POC Troponin I High Sensi 2.9 2.9 (2.9-13.0) pg/mL Total Protein 7.3 (6.0-8.3) g/dL Albumin 4.3 (3.3-5.0) g/dL Lipase 122 (23-300) U/L Imaging Data Chest x-ray: Attestation: I have reviewed the pertinent imaging results. Radiologist's impression: Patient: Penny Ya MR#: [id number] : 1955 Acct:[id number] Loc: ED Service Date: 07/27/[address]: Ordering Physician: Suzanne Aguirre M.D. Date of Service: 07/27/25 Procedure(s): XR chest 2V Accession Number(s): [id number] cc: Roger Long M.D.; Suzanne Aguirre M.D.~ For Patients: As a result of the Cures Act, medical imaging exams and procedure reports are released immediately into your electronic medical record. You may view this report before your referring provider. If you have questions, please contact your health care provider. Indication: Chest pain. Technique: Two views of the chest. Comparison: None. Findings/Impression: The heart is not abnormally enlarged. Mediastinal contours are grossly within normal limits. Probable left upper lobe calcified granuloma, though correlation with prior chest radiographs is recommended to assess for stability. No definite confluent airspace opacity. No pleural effusion or pneumothorax. No acute osseous abnormality. Dictated by Alok Lane MD @ 07/27/2025 9:30:53 PM Discharge Plan Discharge Clinical Impression: Chest pain Patient Disposition: Home, Self-Care Condition: Improved Additional Instructions: Please follow-up with your primary care provider in the next 3-5 days for further evaluation and follow-up. Please call to schedule appointment. Please continue medications. Please drink plenty of water. Return to the emergency department if any worsening symptoms. It was a pleasure taking care of you today. We hope you feel better soon. Prescriptions: No Action aspirin [Adult Low Dose Aspirin] 81 mg tablet,delayed release (DR/EC) 81 mg PO QDAY triamcinolone acetonide 0.1 % cream topical BID PRN cholecalciferol (vitamin D3) 50 mcg (2,000 unit) capsule 100 mcg PO QDAY magnesium PO .QD alprazolam [Xanax] 0.25 mg tablet 0.25 - 0.5 mg PO BID PRN (Reason: anxiety) Qty: 12 0RF Rx Instructions: For flying or dental visits. atenolol 50 mg tablet 50 mg PO BID Qty: 180 3RF chlorthalidone 25 mg tablet 12.5 mg PO DAILY Qty: 45 3RF estradiol 0.5 mg tablet 0.5 mg PO DAILY Qty: 90 3RF losartan 100 mg tablet 100 mg PO DAILY Qty: 90 3RF rosuvastatin 5 mg tablet 5 mg PO DAILY Qty: 90 3RF scopolamine base 1 mg over 3 days patch 3 day 1 patch transdermal Q3D PRN (Reason: motion sickness) Qty: 4 1RF Rx Instructions: Apply patch at least 4 hours before getting on the boat and replace every 72 hours. Follow Up/Referrals: Roger Long MD [Primary Care Provider, Family Practice] Stand Alone Forms: [facility] Info Instructions
[2025-07-27 21:04] LABS: Hematocrit* 41.1 % (33.0-51.0); Hemoglobin* 13.5 gm/dL (12.0-16.0); Immature Granulocytes Abs Auto 0.01 K/uL (0.00-0.30); Immature Granulocytes Pct Auto 0.1 %; Lymphocytes Absolute Auto 1.48 K/uL (0.90-2.90); Mean Corpuscular HGB Conc 33 gm/dL (32-36); Mean Corpuscular Hemoglobin 29 pg (26-34); Mean Corpuscular Volume 87 fL (80-100); RDW Coefficient of Variation % 12.7 % (11.5-15.5); Red Blood Count* 4.72 m/uL (4.00-5.20); Slide Review Reflex No; White Blood Count* 7.17 K/uL (4.50-11.00)
--- NOTE | 2025-07-27 21:08 | CRLHL7_ITS ---
For Patients: As a result of the Century Cures Act, medical imaging exams and procedure reports are released immediately into your electronic medical record. You may view this report before your referring provider. If you have questions, please contact your health care provider. Indication: Chest pain. Technique: Two views of the chest. Comparison: None. Findings/Impression: The heart is not abnormally enlarged. Mediastinal contours are grossly within normal limits. Probable left upper lobe calcified granuloma, though correlation with prior chest radiographs is recommended to assess for stability. No definite confluent airspace opacity. No pleural effusion or pneumothorax. No acute osseous abnormality. Dictated by Alok Lane MD @ 07/27/2025 9:30:53 PM (Electronically Signed)
[2025-07-27 21:19] LABS: Albumin* 4.3 g/dL (3.3-5.0); Chloride* 93 mmol/L (96-114); Potassium* 3.5 mmol/L (3.6-5.1); Sodium* 132 mmol/L (135-149)
[2025-07-27 21:22] LABS: Alanine Aminotransferase* 18 U/L (4-35); Alkaline Phosphatase* 66 U/L (40-150); Anion Gap 13 mEq/L (7-15); Aspartate Amino Transferase* 26 U/L (12-35); Bilirubin Total* 0.3 mg/dL (0.1-1.5); Blood Urea Nitrogen* 17 mg/dL (7-30); Calcium* 9.4 mg/dL (8.4-10.6); Carbon Dioxide* 26 mmol/L (20-32); Creatinine* 0.8 mg/dL (0.5-1.5); Est. Creatinine Clearance* 49.00; Estimated Glomerular Filt Rate 79 ml/min; Glucose* 112 mg/dL (60-115); Total Protein* 7.3 g/dL (6.0-8.3)
[2025-07-27] MEDS: PANTOPRAZOLE SODIUM 40 MG INJ IVP (21:35)
[2025-07-27] MEDS: GI COCKTAIL (VISC LIDO/ANTACID) 30 ML PO (21:35)
== END 2025-07-27 23:40 | disposition home or self-care (01) ==
PROVIDERS: Emergency Provider Emergency Medicine; PCP Family Medicine
DX: R07.9 Chest pain, unspecified (principal); I10 Essential (primary) hypertension; E78.5 Hyperlipidemia, unspecified; I49.3 Ventricular premature depolarization; Z79.82 Long term (current) use of aspirin
CPT/HCPCS: 36415; 71046; 80053; 83690; 84484; 85025; 96374; 99284; 99285; A9270; J2470